=== PATIENT | female | born 1990 | race Caucasian/White ===

== ENCOUNTER 2019-08-09 09:02 | Outpatient (CLI) | payer OTHER, SELFPAY ==
[2019-08-09 09:15] VITALS: BMI 40.0
--- NOTE | 2019-08-10 09:07 | OB.TRI.NOTE ---
History of Present Illness Date of Service: 08/09/19 Was patient seen by the physician?: No Reason For Visit: NST Date of Service: 08/09/19 Final ANUPAMA: 08/02/19 Gestational age: 41 Weeks and 1 Days Allergies No Known Allergies Allergy (Verified 08/09/19 09:12) NST - FHR Rate Baby A Baseline: 120 Variability:: Moderate Accelerations:: None Decelerations:: None NST Reactive:: Yes FHR Category:: Category I Uterine Activity:: irregular Impression/Plan 29yo @ 41 weeks- here for NST 1) well being established- Scheduled for IOL 41.1 wks
== END 2019-08-09 09:45 | disposition home or self-care (01) ==
PROVIDERS: Referring Provider Obstetrics & Gynecology; Visit Provider Obstetrics & Gynecology
DX: O48.0 Post-term pregnancy (principal); Z3A.41 41 weeks gestation of pregnancy
CPT/HCPCS: 59025; 59050; 99218; G0378

== ENCOUNTER 2019-08-10 18:50 | Inpatient (IN) | payer OTHER, SELFPAY ==
[2019-08-09 09:15] VITALS: BMI 40.0
[2019-08-10] MEDS: Lactated Ringers 1,000 ML 50 ML IV (19:44)
[2019-08-10 19:48] VITALS: BMI 41.6
[2019-08-10 19:52] LABS: Absolute Lymphocyte Count 1.46 X10^3/uL (0.83-4.51); Absolute Neutrophil Count 6.9 X10^3/uL (2.0-7.7); Basophil# 0.03 X10^3/uL; Basophil% 0.3 % (0-1); Eosinophil# 0.09 X10^3/uL; Hematocrit 34.1 % (37-47); Hemoglobin 11.2 g/dL (12.0-15.0); Lymphocyte # 1.46 X10^3/ul (4.0); Lymphocyte % 15.9 % (19-41); Mean Corp Hgb Conc 32.8 g/dL (32-36); Mean Corpuscular Hgb 29.2 pg (27.0-32.0); Mean Platelet Vol. 10.3 fl (6.2-12.0); Monocyte# 0.66 X10^3/uL; Monocyte% 7.2 % (0-10); NRBC Flagged by Analyzer 0 % (0-5); Neutrophil # 6.85 X10^3/uL (2.7-7.7); Neutrophil % 74.7 % (47-70); Platelet Count 249 K/mm3 (150-450); RBC Distribution Width CV 13.1 % (11.6-14.6); RBC Distribution Width SD 42.4 fl (35.1-43.9); Red Blood Count 3.83 M/mm3 (4.2-5.4); White Blood Count 9.2 K/mm3 (4.4-11.0)
[2019-08-10] MEDS: Oxytocin 30 units/NS 500 ml 30 UNITS/500 ML IV.SOLN IV (20:35)
--- NOTE | 2019-08-10 20:40 | PCM.HP.OB ---
- Problem List (1) History of PCOS Status: Acute (2) Tobacco use during Status: Acute (3) Family history of congenital heart defect Status: Acute (4) Obesity during Status: Acute (5) Anemia affecting Status: Acute (6) Positive GBS test Status: Acute (7) Post-dates Status: Acute History Date of Admission: 08/10/19 Final ANUPAMA: 08/02/19 Final ANUPAMA Source: US <20 weeks Gestational age: 41 Weeks and 1 Days History of this : This is a 29 year-old, G [1], P [0], at 41 weeks gestational age. Presented to L&D for postdates induction of labor. Allergies No Known Allergies Allergy (Verified 08/10/19 19:48) Home Medications: Home Medications Pnv No.95/Ferrous Fum/Folic AC [ Vitamin Tablet] 1 tab PO DAILY 08/09/19 Smoking Status: Current every day smoker Alcohol: None Number of Fetus(es): 1 NST - FHR Rate Baby A Baseline: 135 Variability:: Moderate Accelerations:: 15 x 15 Decelerations:: None FHR Category:: Category I Uterine Activity:: none History Past Pregnancies: Past Pregnancies Delivery Date Name GA/Weeks Outcome Route Weight Gender Labor Length Anesthesia Delivery Location Provider FOB Labs: 1hr GCT normal RPR negative Rubella immune HBsAG negative HIV negative A positive GC/CT negative GBS positive Expected Delivery Method: Spontaneous Vaginal Review of Systems Constitutional: Denies: Chills, Fever, Weight Change HEENT: Denies: Head Aches, Sinus Congestion, Sinus Drainage Cardiovascular: Denies: Chest Pain, Palpitations Respiratory: Denies: Cough, Shortness of breath at rest, Sputum production Gastrointestinal: Denies: Abdominal Pain, Nausea, Vomiting Genitourinary: Denies: Dysuria Psychiatric: Denies: Anxiety, Depression, Homicidal Ideations, Suicidal Ideations Physical Exam General: Alert, Oriented x3, No apparent distress HEENT: Atraumatic, Normocephalic Cardiovascular: Regular rate, Regular Rhythm, No murmurs Lungs: Clear to auscultation, Normal air movement, No rhonchi, No wheeze Abdomen: Bowel Sounds Present, Gravid Extremities:: No edema Neurological: Deep Tendon Reflexes 2+/4 and Symmetrical. Negative for: Clonus LUBE TECHNICIAN: Normal external genitalia Estimated gestational size: Appropriate for gestational size Presentation: Cephalic Cervix Dilation (cm): 3 Station: -2 Effacement (%): 60 Assessment/Plan All Active Problems History of PCOS (Acute) Tobacco use during (Acute) Family history of congenital heart defect (Acute) Obesity during (Acute) Anemia affecting (Acute) Positive GBS test (Acute) Post-dates (Acute) This is a 29 year-old, G [1], P [0], at 41 weeks gestational age for postdates induction of labor P: 1) Admit to L&D. 2) Admission of labs. IV placement. 3) Pitocin for active management. GBS prophylaxis. 4) collaborative physician, notified of plan.
[2019-08-11] MEDS: Lactated Ringers 500 ML 999 ML IV ×4 (02:50→08:19)
[2019-08-11] MEDS: Nalbuphine 10 MG/ML Ampul IV (03:10)
[2019-08-11] MEDS: 0.9% Saline Lock 10 ML Syringe IV ×2 (03:11→15:37)
[2019-08-11] MEDS: fentaNYL-bupivacaine (epidural) 100 ML BAG EPIDURAL (05:37)
[2019-08-11] MEDS: Oxytocin 30 units/NS 500 ml 30 UNITS/500 ML IV.SOLN 334 UNITS IV (11:55)
--- NOTE | 2019-08-11 12:20 | PCM.OPRPT ---
Problem List (1) History of PCOS Status: Acute (2) Tobacco use during Status: Acute (3) Family history of congenital heart defect Status: Acute (4) Obesity during Status: Acute (5) Anemia affecting Status: Acute (6) Positive GBS test Status: Acute (7) Post-dates Status: Acute (8) Vaginal delivery Status: Acute (9) First degree perineal laceration Status: Acute Vaginal Delivery Maternal Presentation: Medically Indicated Induction Method of Induction: Pitocin Amniotic Membrane Rupture Type: Artificial Amniotic Fluid Description: Clear Final ANUPAMA: 08/02/19 Final ANUPAMA Source: US <20 weeks Gestational age: 41 Weeks and 2 Days Date of Procedure: 08/11/19 Pre-Operative Diagnosis: Induction of labor Post-Operative Diagnosis: Surgery/ Procedure Performed: Spontaneous Vaginal Delivery Type of Anesthesia: Epidural, Local with 1% lidocaine Description of Procedure: Progressed to complete and contractions stopped. Pushing efforts stopped and pitocin restarted. Progressed rapidly and pushing efforts very effective. of viable male over 1st degree perineal laceration. Infant delivered by GÓMEZ Skelton. Provider arrived immediately after placed on maternal abdomen. Spontaneous cry, mouth and nares suctioned for secretions. Pitocin started for active 3rd stage management. Placenta delivered via maternal effort, intact via elmira, 3 vessel cord. Perineum inspected and revealed 1st degree laceration, repaired with 3.0 vicryl under epidural and 1% lidocaine. Fundus firm, EBL 400ml. Vaginal sweep completed. Sponge and instrument count correct. notified of delivery. Presentation: Vertex Placental Delivery Description: Spontaneous Placenta Disposition: [facility] Cord Vessel Description: 3 Vessels Cord Entanglement: None Estimated Blood Loss: 400 ml A gender: Male (1 minute): 8 (5 minute): 9 Episiotomy Description: None Laceration: Perineal Extension/lac, 1st degree Medications given after delivery: IV Pitocin
[2019-08-11 17:00] VITALS: BP 106/62; PULSE 100; RESP 16; TEMP 36.8; O2SAT 97
[2019-08-11 20:00] VITALS: BP 122/56; PULSE 96; RESP 16; TEMP 36.9
[2019-08-11 23:53] VITALS: BP 116/69; PULSE 96; RESP 16; TEMP 36.6
[2019-08-12 04:00] VITALS: BP 122/81; PULSE 98; RESP 16; TEMP 36.9
[2019-08-12 05:49] LABS: Hematocrit 31.9 % (37-47); Hemoglobin 10.4 g/dL (12.0-15.0); Mean Corp Hgb Conc 32.6 g/dL (32-36); Mean Corpuscular Hgb 29.1 pg (27.0-32.0); Mean Corpuscular Volume 89.4 fL (81-99); Mean Platelet Vol. 10.2 fl (6.2-12.0); Platelet Count 245 K/mm3 (150-450); RBC Distribution Width CV 13.1 % (11.6-14.6); RBC Distribution Width SD 42.8 fl (35.1-43.9); Red Blood Count 3.57 M/mm3 (4.2-5.4); White Blood Count 13.4 K/mm3 (4.4-11.0)
--- NOTE | 2019-08-12 08:07 | PCM.PN.OB ---
Patient Problems: Active and Suspected Problems History of PCOS (Acute) Tobacco use during (Acute) Family history of congenital heart defect (Acute) Obesity during (Acute) Anemia affecting (Acute) Positive GBS test (Acute) Post-dates (Acute) Vaginal delivery (Acute) First degree perineal laceration (Acute) Subjective: pain well controlled, average lochia - Physical Exam General: Alert, Cooperative, No apparent distress Vital Signs Temp Pulse Resp BP Pulse Ox 98.5 F 98 16 122/81 H 97 08/12/19 04:00 08/12/19 04:00 08/12/19 04:00 08/12/19 04:00 08/11/19 17:00 Oxygen Delivery Method Room Air Weight: 117.027 kg Body Mass Index (BMI) 41.6 Intake and Output for Last 24 Hours 08/10/19 08/11/19 08/12/19 23:59 23:59 23:59 Intake Total 734.87 / 734.87 3517.67 / 3517.67 Output Total 175 / 175 3700 / 3700 Balance 559.87 / 559.87 -182.33 / -182.33 Laboratory Tests Past 24 Hrs 08/12/19 05:27 WBC 13.4 H RBC 3.57 L Hgb 10.4 L Hct 31.9 L MCV 89.4 MCH 29.1 MCHC 32.6 RDW Std Deviation 42.8 RDW Coeff of Kelsi 13.1 Plt Count 245 MPV 10.2 Medical Necessity - Tobacco Use Smoking Status: Current every day smoker Assessment/Plan All Active Problems History of PCOS (Acute) Tobacco use during (Acute) Family history of congenital heart defect (Acute) Obesity during (Acute) Anemia affecting (Acute) Positive GBS test (Acute) Post-dates (Acute) Vaginal delivery (Acute) First degree perineal laceration (Acute) PPD#1 doing well routine care likely home tomorrow
[2019-08-12 08:50] VITALS: BP 124/81; PULSE 88; RESP 16; TEMP 37.1; O2SAT 98
[2019-08-12] MEDS: Acetaminophen 500 MG Tablet 1000 MG PO (13:25)
[2019-08-12 13:30] VITALS: BP 122/87; PULSE 100; RESP 16; TEMP 36.6; O2SAT 98
[2019-08-12 20:15] VITALS: BP 124/81; PULSE 88; RESP 16; TEMP 36.9; O2SAT 99
[2019-08-13 02:40] VITALS: BP 134/69; PULSE 101; RESP 16; TEMP 36.2; O2SAT 96
--- NOTE | 2019-08-13 08:30 | PCM.PN.OB ---
Patient Problems: Active and Suspected Problems History of PCOS (Acute) Tobacco use during (Acute) Family history of congenital heart defect (Acute) Obesity during (Acute) Anemia affecting (Acute) Positive GBS test (Acute) Post-dates (Acute) Vaginal delivery (Acute) First degree perineal laceration (Acute) Subjective: She is seen at bedside, doing well. Patient reports good pain control. Mild lochia. Breast-feeding without difficulty. Voiding without difficulty. Patient requesting DC home today. - Physical Exam General: Alert, Oriented x3 Abdomen: Soft, Non Tender, - - Fundus firm Extremities: No Calf Tenderness Vital Signs Temp Pulse Resp BP Pulse Ox 97.2 F L 101 H 16 134/69 H 96 08/13/19 02:40 08/13/19 02:40 08/13/19 02:40 08/13/19 02:40 08/13/19 02:40 Oxygen Delivery Method Room Air Weight: 117.027 kg Body Mass Index (BMI) 41.6 Intake and Output for Last 24 Hours 08/11/19 08/12/19 08/13/19 23:59 23:59 23:59 Intake Total 3517.67 / 3517.67 Output Total 3700 / 3700 Balance -182.33 / -182.33 Medical Necessity - Tobacco Use Smoking Status: Current every day smoker Assessment/Plan All Active Problems History of PCOS (Acute) Tobacco use during (Acute) Family history of congenital heart defect (Acute) Obesity during (Acute) Anemia affecting (Acute) Positive GBS test (Acute) Post-dates (Acute) Vaginal delivery (Acute) First degree perineal laceration (Acute) day #2, doing well Routine care DC home today
--- NOTE | 2019-08-13 08:32 | DCINST_ITS ---
Discharge Diet: No Restrictions Discharge Activity: Return to Normal Activity, May not drive while taking narcotic pain medications., May Shower May resume sexual activity in: 4-6 weeks Additional Activity Instructions:: Nothing in the vagina for 4-6 weeks. You may return to work/school in 6 weeks. Call your doctor if your incision/area has: Continuous Slow Oozing, Sudden Increased Bleeding, Increased Pain/ Swelling, Increased Redness, Foul Smelling Discharge Additional Instructions: If you experience any of the following, contact your healthcare provider. * Bleeding that soaks a pad every hour for 2 hours * Fever 100.4 or higher * Unrelieved incision or abdominal pain * Swelling, redness, discharge or bleeding from your incision or episiotomy site * Your incision begins to separate * Problems urinating (including inability to urinate or burning while urinating). * Visual changes * Severe headache * Flu-like symptoms * Pain or redness in one of both of your breasts * Pain, warmth, tenderness or swelling in your legs, especially the calf area * Frequent nausea and vomiting * Symptoms of depression or anxiety If you experience any of the following, call 911 or go to the nearest Emergency Room. * Chest pain * Problems breathing * Seizure activity * Partial or complete paralysis of a body part, slurred speech, weakness or drooping of the face, or a sudden inability to walk or hold your balance Allergies/Adverse Reactions: Allergies No Known Allergies Allergy (Verified 08/10/19 19:48) Medications to take at Discharge Pnv No.95/Ferrous Fum/Folic AC [ Vitamin Tablet] 1 tab PO DAILY 08/09/19 Ibuprofen [Motrin] 600 mg PO Q6H PRN PRN #30 tab 08/13/19 The following prescriptions were given: Ibuprofen [Motrin] 600 mg PO Q6H PRN PRN #30 tab PRN Reason: Mild Pain (-02/02) Transmission Status: Pending to [id number] When: Call to make an appointment with your doctor in 6 weeks. If you had elevated Blood Pressure or 4th degree laceration you will need to be seen in 2 weeks. Please Follow Up With: Nancy Merrill MD Primary Care Physician: Care Physician,No Primary [Primary Care Provider] - Test Results: Test results from this visit will be discussed in further detail at your follow- up appointment, if applicable.
[2019-08-13 08:35] VITALS: BP 124/83; PULSE 94; RESP 16; TEMP 36.6
== END 2019-08-13 11:05 | disposition home or self-care (01) | DRG 807 ==
PROVIDERS: Advanced Practice Midwife; Obstetrics & Gynecology; Admitting Provider Obstetrics & Gynecology; Referring Provider Obstetrics & Gynecology; Visit Provider Obstetrics & Gynecology
DX: O48.0 Post-term pregnancy (principal); O70.0 First degree perineal laceration during delivery; O99.824 Streptococcus B carrier state complicating childbirth; O99.214 Obesity complicating childbirth; E66.01 Morbid (severe) obesity due to excess calories; O99.334 Smoking (tobacco) complicating childbirth; F17.200 Nicotine dependence, unspecified, uncomplicated; O99.02 Anemia complicating childbirth; D64.9 Anemia, unspecified; Z3A.41 41 weeks gestation of pregnancy; Z37.0 Single live birth
CPT/HCPCS: 59025; 59050; 85025; 85027; 86850; 86900; 86901; 99218; J7120; A4216; G0378

== ENCOUNTER → 2024-01-30 | Outpatient (CLI) | payer OTHER, SELFPAY ==
--- NOTE | 2024-01-30 15:05 | NEURO ---
NCS and/or EMG Patient Report Ordering Doctor: Raine Sevilla DATE OF SERVICE: 01/30/24 Mary Carmen presents for electrodiagnostic testing of the upper limbs. She reports numbness and tingling in both hands. Electrodiagnostic findings: Right median motor nerve demonstrates prolonged latency with normal amplitude and reduced conduction velocity. Left median motor nerve demonstrates prolonged distal latency with normal amplitude and conduction velocity ulnar motor response within normal limits bilaterally, including conduction across the elbow. Prolonged median sensory latency at the wrist bilaterally. Needle EMG testing was performed in the upper limbs. All muscles tested showed no evidence of denervation with normal motor unit action potentials. Electrodiagnostic impression: This is an abnormal study in the upper limbs 1. Electrodiagnostic findings demonstrates bilateral median mononeuropathy. This is consistent with a moderate bilateral carpal tunnel syndrome. 2. No electrodiagnostic evidence is noted for cervical radiculopathy. Multi Select Codes Neurology Neurology Interp Codes: 71140-34 Musc test done w/n test comp (interp) (2) and 59380-86 Nrv cndj test 11-12 studies (interp)
--- OUTSIDE RECORDS SUMMARY | 2024-01-30 18:15 | XMS RPT_ITS | CCD ---
Author Name Unknown Address [address] [place] [id number] Organization [facility] Results Test Name Value Interpretation Reference Range Facil ity Summary Purpose Family History No Family History Records Found Advance Directives No Advanced Directives Records Found Additional Source Comments INFORMATION SOURCE (unrecogn ized section and content) FOR RECORDS PERTAINING TO PATIENTS WHO ARE OR HAVE BEEN ENROLLED IN A CHEMICAL DEPENDENCY/SUBSTANCEABUSE PROGRAM, SOME INFORMATION MAY BE OMITTED. This clinical summary was aggregated from multiple sources. Caution should be exercised in using it in the provision of clinical care. This summary normalizes information from multiple sources, and as a consequence, information in this document may materially change the coding, format and clinical context of patient data. In addition, data may be omitted in some cases. CLINICAL DECISIONS SHOULD BE BASED ON THE PRIMARY CLINICAL RECORDS. [email or web address] provides no warranty or guarantee of the accuracy or completeness of information in this document.
== END | disposition home or self-care (01) ==
LOC: PSN 13:37
PROVIDERS: Referring Provider Physician Assistant Surgical; Visit Provider Physician Assistant Surgical
DX: G56.03 Carpal tunnel syndrome, bilateral upper limbs (principal)
CPT/HCPCS: 95886; 95911

== ENCOUNTER 2025-11-02 11:00 | Outpatient (CLI) | payer OTHER, SELFPAY ==
[2025-11-02 11:25] VITALS: BP 142/86; PULSE 101
[2025-11-02 11:39] VITALS: BP 136/77; PULSE 85
[2025-11-02 11:51] LABS: Hematocrit 37.5 % (37-47); Hemoglobin 12.4 g/dL (12.0-15.0); Mean Corp Hgb Conc 33.1 g/dL (32-36); Mean Corpuscular Volume 88.2 fL (81-99); Mean Platelet Vol. 10.1 fl (6.2-12.0); Platelet Count 327 K/mm3 (150-450); RBC Distribution Width CV 13.2 % (11.6-14.6); RBC Distribution Width SD 42.5 fl (35.1-43.9); Red Blood Count 4.25 M/mm3 (4.2-5.4); White Blood Count 10.5 K/mm3 (4.4-11.0)
[2025-11-02 11:54] VITALS: BP 133/75; PULSE 85
[2025-11-02 12:08] VITALS: BMI 43.7
[2025-11-02 12:09] VITALS: BP 143/78; PULSE 90; RESP 16; TEMP 36.4
[2025-11-02 12:24] VITALS: BP 142/85; PULSE 86
[2025-11-02 12:24] LABS: AST(SGOT) 19 U/L (<=31); Alanine Aminotransfer ALT/SGPT 18 U/L (<=34); Estimated Creatinine Clearance 216.87 ml/min (50-250)
[2025-11-02 12:27] LABS: Creatinine, Urine (random) 41.80 mg/dL (28.00-217.00); Protein, Urine (Random) 34.0 mg/dL (0.0-12.0); Protein:Creat Ratio 813 mg/g CRE (0-200)
[2025-11-02 12:38] LABS: Uric Acid 3.7 mg/dL (2.6-6.0)
--- NOTE | 2025-11-02 12:50 | US_ITS ---
PROCEDURE: OB LIMITED WITH BIOMETRICS 11/02/2025 REASON FOR EXAM: PRE E TECHNIQUE: Procedure Code: [id number] Modality: US Procedure: OB LIMITED WITH BIOMETRICS FINDINGS Breech position with cardiac activity of 148 bpm. ROYA of 12.6 cm. Placenta is posterior position with grade 1. BPD of 8.1, OFD of the 10.3, HC of 29.0, AC of 29.4, and FL of 6.3 cm corresponding with average gestational age of 32 weeks and 3 days day with ANUPAMA of 12/25/2025. Biometric measurement are within normal limits. Estimated weight of 2128 (58 percentile). US/OB Limited With Biometrics IMPRESSION: Sonographic gestational age of 32 weeks and 3 days with ANUPAMA of 12/25/2025. Bio metric measurements are within normal limits. Reading Location: [id number]
--- NOTE | 2025-11-02 13:21 | PCM.HP.OB ---
HPI - General General Date of Admission: 11/02/25 Date of Service: 11/02/25 Chief Complaint: elevated BP HPI Narrative BLANKA PIERRE, is a 35 F who presents with elevated BP from office. She is feeling well. Denies any symptoms. No TRINIDAD, vision changes, RUQ pain, nausea, vomiting. She has been checking BP at home which has been 120/80's PFSH [facility] Home Medications ?Medication ?Instructions ?Recorded ?Last Taken ?Type vit no.95-ferrous 1 tab PO DAILY 08/09/19 11/02/25 07:00 History fumarate 28 mg-folic acid 800 mcg 1 TAB tablet aspirin 81 mg chewable tablet 162 mg PO DAILY 11/02/25 10/31/25 07:00 History (Aspirin Childrens) 162 mg ferrous sulfate 325 mg (65 mg 325 mg PO DAILY 11/02/25 11/02/25 07:00 History iron) tablet (Iron (ferrous 325 mg sulfate)) Allergy/AdvReac Type Severity Reaction Status Date / Time No Known Allergies Allergy Verified 11/02/25 12:10 Social History Smoking Status: Current every day smoker History Elective abortions Hx Para 0 Spontaneous abortions Hx # Term Pregnancies Ectopic pregnancies Hx # Pregnancies Multiple births # of living children Vital Signs Vital Signs Vital Signs: 11/02/25 11:25 11/02/25 11:25 11/02/25 11:39 Temperature Temperature Source Pulse Rate 101 H Respiratory Rate Blood Pressure 142/86 H 136/77 H BP Systolic 142 136 BP Diastolic 86 77 11/02/25 11:39 11/02/25 11:54 11/02/25 11:54 Temperature Temperature Source Pulse Rate 85 85 Respiratory Rate Blood Pressure 133/75 H BP Systolic 133 BP Diastolic 75 11/02/25 12:09 11/02/25 12:09 11/02/25 12:09 Temperature Temperature Source Temporal Pulse Rate 90 Respiratory Rate Blood Pressure 143/78 H BP Systolic 143 BP Diastolic 78 11/02/25 12:09 11/02/25 12:09 11/02/25 12:24 Temperature 97.5 F L Temperature Source Pulse Rate Respiratory Rate 16 Blood Pressure 142/85 H BP Systolic 142 BP Diastolic 85 11/02/25 12:24 Temperature Temperature Source Pulse Rate 86 Respiratory Rate Blood Pressure BP Systolic BP Diastolic Weight Weight: 278 lb 14.156 oz Body Mass Index (BMI) 43.7 Physical Exam Const alert and no apparent distress Constitutional Narrative: well appearing General Appearance: comfortable Resp normal respiratory effort GI soft to palpation, non-tender and non-distended Neuro deep tendon reflexes 2+ bilaterally Labs Labs Labs: Blood Type A POSITIVE Antibody Screen NEGATIVE Hct, (37-47) 37.5 % Hgb, (12.0-15.0) 12.4 g/dL Rhogam given: No Assessment & Plan (1) 32 weeks gestation of : (2) Pre-eclampsia: PLAN: Mild-normal BP's. Patient is asymptomatic with no hyper reflexia. P/c ratio elevated but other labs WNL. Check growth and fluid ultrasound. Patient requesting to go home today as she needs to get her son off the bus, and has limited assistance with childcare. We reviewed importance of monitoring symptoms and checking blood pressures at home. Discussed reasons to call. Needs to return to office later this week for BP check and visit.
== END 2025-11-02 14:10 | disposition home or self-care (01) ==
LOC: WPOUT 11:00 → WP 11:01
PROVIDERS: Referring Provider Obstetrics & Gynecology; Visit Provider Obstetrics & Gynecology
DX: O14.93 Unspecified pre-eclampsia, third trimester (principal); O99.333 Smoking (tobacco) complicating pregnancy, third trimester; F17.200 Nicotine dependence, unspecified, uncomplicated; Z3A.32 32 weeks gestation of pregnancy
CPT/HCPCS: 36415; 59025; 59050; 76816; 82565; 82570; 84156; 84450; 84460; 84550; 85027; 99221; G0378